=== PATIENT | female | born 1965 | race Caucasian/White ===

== ENCOUNTER 2017-06-29 09:35 | Outpatient (CLI) | payer OTHER | END 2017-06-29 09:36 | disposition home or self-care (01) | LOC: BICMAMMO 09:35 | PROVIDERS: ATTEND Obstetrics & Gynecology | DX: Z12.31 Encounter for screening mammogram for malignant neoplasm of breast (principal); R92.1 Mammographic calcification found on diagnostic imaging of breast | CPT/HCPCS: 77063; 77067 ==

== ENCOUNTER 2017-09-01 12:55 | Outpatient (CLI) | payer OTHER ==
--- NOTE | 2017-09-01 15:34 | ULT ---
DOPPLER VENOUS ULTRASOUND LEFT LOWER EXTREMITY: 09/01/17 INDICATION: Left lower extremity edema and pain. TECHNIQUE: Lopez scale, color doppler and vascular duplex with spectral analysis was performed of the deep venous structures of the left lower extremity. Common femoral vein, superficial femoral vein, popliteal vei n, posterior tibial vein, proximal greater saphenous and profunda veins were assessed. FINDINGS: Normal compression, flow, and augmentation seen within the deep venous structures of the left lower e xtremity. IMPRESSION: No evidence of DVT to the left lower extremity. POS: VIN[facility]AK
== END 2017-09-01 12:56 | disposition home or self-care (01) ==
LOC: ULT 12:55
PROVIDERS: ATTEND Family Medicine
DX: M79.605 Pain in left leg (principal)